=== PATIENT | male | born 1935 | race Caucasian/White ===

== ENCOUNTER 2017-08-07 18:28 | Inpatient (IN) | payer OTHER ==
[~2017-08-07] VITALS: Ht 175.3 cm; Wt 59.9 kg
[~2017-08-07 18:28] MED LIST: AMLODIPINE BESY10 MG PO; CARVEDILOL6.25 MG PO; FLOMAX0.4 MG PO; FLUOXETINE HCL40 MG PO; LISINOPRIL10 MG PO; LOVASTATIN10 MG PO; PROCHLORPERAZIN10 MG PO
[2017-08-07 19:46] LABS: BASOPHIL (%) 0.2 % (0-1); EOSINOPHIL (%) 0.1 % (0-5); HEMATOCRIT 44.2 % (38.0-50.0); HEMOGLOBIN 14.3 G/DL (12.5-16.6); IMMATURE GRANULOCYTE (%) 0.3 % (0.0-0.7); LYMPHOCYTE COUNT 0.7 K/uL (1.0-2.8); MCH 29.8 PG (29.0-34.0); MCHC 32.4 G/DL (30.0-36.0); MCV 92.1 FL (86-99); MONOCYTE (%) 8.8 % (3-12); MONOCYTE COUNT 1.1 K/uL (0-0.8); NEUTROPHIL (%) 84.6 % (45-76); NEUTROPHIL COUNT 10.3 K/uL (1.8-6.4); PLATELET COUNT 195 K/uL (156-360); RBC DIS.WIDTH-CV 17.2 % (11.8-14.6); RBC DIS.WIDTH-SD 58.4 % (39-53); WHITE BLOOD COUNT 12.2 K/uL (4.1-10.2)
[2017-08-07 19:59] LABS: CHLORIDE 107 mEq/L (99-109); POTASSIUM 3.4 mEq/L (3.7-5.4); SODIUM 142 mEq/L (136-147)
[2017-08-07 20:01] LABS: GLUCOSE 79 mg/dL (70-99)
[2017-08-07 20:02] LABS: TOTAL PROTEIN 7.7 g/dL (6.4-8.3)
[2017-08-07 20:03] LABS: TOTAL BILIRUBIN 0.4 mg/dL (0.0-1.0)
[2017-08-07 20:05] LABS: ALKALINE PHOSPHATASE 109 IU/L (3-129); CREATININE 0.8 mg/dL (0.6-1.3); GFR ESTIMATE (CALCULATED) > 59 mL/min/
[2017-08-07 20:06] LABS: UREA NITROGEN (BUN) 13 mg/dL (9-23)
[2017-08-07 20:07] LABS: AST (GOT) 9 IU/L (2-34); DIRECT BILIRUBIN 0.3 mg/dL (0.0-0.3)
[2017-08-07 20:08] LABS: ALT (GPT) 7 IU/L (3-49); LIPASE 10 U/L (1.0-51.0); TROP-I INTERPRETATION NEGATIVE; TROPONIN-I 0.01 ng/mL (0.0-0.30)
[2017-08-07] MEDS ORDERED: HYDROCODON-ACE1 EAC7 PO (21:50)
[2017-08-07] MEDS ORDERED: TAMSULOSIN HCL0.4 MG PO (21:51)
[2017-08-07] MEDS ORDERED: LISINOPRIL-HCT1 EAC3 PO (21:51)
[2017-08-07 23:07] LABS: APPEARANCE CLEAR ((CLEAR)); BILIRUBIN NEGATIVE; BLOOD NEGATIVE; COLOR YELLOW ((YELLOW)); GLUCOSE (STRIP) NEGATIVE; KETONES NEGATIVE; LEUKOCYTES NEGATIVE; NITRITE NEGATIVE; PROTEIN (STRIP) NEGATIVE; SPECIFIC GRAVITY 1.043 (1.000-1.030)
[2017-08-07 23:31] LABS: MAGNESIUM 1.9 mg/dL (1.3-2.7)
[2017-08-08 05:15] VITALS: BP 133/85
[2017-08-08 06:19] LABS: BASOPHIL (%) 0.1 % (0-1); EOSINOPHIL (%) 0 % (0-5); HEMATOCRIT 39.7 % (38.0-50.0); IMMATURE GRANULOCYTE (%) 0.5 % (0.0-0.7); LYMPHOCYTE (%) 2.2 % (15-42); LYMPHOCYTE COUNT 0.2 K/uL (1.0-2.8); MCH 29.3 PG (29.0-34.0); MCHC 30.7 G/DL (30.0-36.0); MCV 95.2 FL (86-99); MONOCYTE (%) 2.1 % (3-12); MONOCYTE COUNT 0.2 K/uL (0-0.8); NEUTROPHIL (%) 95.1 % (45-76); NEUTROPHIL COUNT 9.8 K/uL (1.8-6.4); PLATELET COUNT 141 K/uL (156-360); RBC DIS.WIDTH-CV 17.4 % (11.8-14.6); RBC DIS.WIDTH-SD 61.4 % (39-53); RED BLOOD COUNT 4.17 M/uL (4.00-5.50); WHITE BLOOD COUNT 10.3 K/uL (4.1-10.2)
[2017-08-08 06:31] LABS: HEMOGLOBIN 12.2 G/DL (12.5-16.6)
[2017-08-08 06:46] LABS: CHLORIDE 110 MEQ/L (99-109); CREATININE 0.7 MG/DL (0.6-1.3); GFR ESTIMATE (CALCULATED) > 59 mL/min/; SODIUM 140 MEQ/L (136-147); UREA NITROGEN (BUN) 12 mg/dL (9-23)
[2017-08-08 06:59] LABS: GLUCOSE 107 mg/dL (70-99); POTASSIUM 4.2 MEQ/L (3.7-5.4)
[2017-08-08 07:03] VITALS: BP 162/83
[2017-08-08 11:38] VITALS: BP 144/83
[2017-08-08 15:09] VITALS: BP 130/81
[2017-08-08 20:41] VITALS: BP 146/86
[2017-08-08 23:47] VITALS: BP 162/93
[2017-08-09 04:15] VITALS: BP 157/92
[2017-08-09 06:47] LABS: BASOPHIL (%) 0 % (0-1); EOSINOPHIL (%) 0 % (0-5); HEMATOCRIT 34.9 % (38.0-50.0); IMMATURE GRANULOCYTE (%) 0.8 % (0.0-0.7); LYMPHOCYTE (%) 4.6 % (15-42); LYMPHOCYTE COUNT 0.4 K/uL (1.0-2.8); MCH 29.4 PG (29.0-34.0); MCHC 31.5 G/DL (30.0-36.0); MCV 93.3 FL (86-99); MONOCYTE (%) 5.4 % (3-12); MONOCYTE COUNT 0.4 K/uL (0-0.8); NEUTROPHIL (%) 89.2 % (45-76); NEUTROPHIL COUNT 6.9 K/uL (1.8-6.4); PLATELET COUNT 128 K/uL (156-360); RBC DIS.WIDTH-CV 17.3 % (11.8-14.6); RBC DIS.WIDTH-SD 59.4 % (39-53); RED BLOOD COUNT 3.74 M/uL (4.00-5.50); WHITE BLOOD COUNT 7.8 K/uL (4.1-10.2)
[2017-08-09 07:19] LABS: ALBUMIN 2.3 G/DL (3.2-4.8); ALKALINE PHOSPHATASE 78 IU/L (3-129); ALT (GPT) 7 IU/L (3-49); AST (GOT) 7 IU/L (2-34); CHLORIDE 110 MEQ/L (99-109); CREATININE 0.6 MG/DL (0.6-1.3); GFR ESTIMATE (CALCULATED) > 59 mL/min/; GLUCOSE 104 mg/dL (70-99); PHOSPHORUS 2.7 mg/dL (2.5-4.9); POTASSIUM 3.8 MEQ/L (3.7-5.4); SODIUM 141 MEQ/L (136-147); TOTAL BILIRUBIN 0.3 MG/DL (0.0-1.0); TOTAL PROTEIN 5.7 G/DL (6.4-8.3); UREA NITROGEN (BUN) 19 mg/dL (9-23)
[2017-08-09 09:32] VITALS: BP 175/88
[2017-08-09 12:21] VITALS: BP 172/90
[2017-08-09 16:11] VITALS: BP 162/76
[2017-08-09 19:59] VITALS: BP 143/88
[2017-08-10 00:50] VITALS: BP 172/98
[2017-08-10 04:09] VITALS: BP 179/110
[2017-08-10 07:37] LABS: BASOPHIL (%) 0.1 % (0-1); EOSINOPHIL (%) 0 % (0-5); HEMATOCRIT 35.6 % (38.0-50.0); HEMOGLOBIN 11.5 G/DL (12.5-16.6); IMMATURE GRANULOCYTE (%) 0.9 % (0.0-0.7); LYMPHOCYTE (%) 7.8 % (15-42); LYMPHOCYTE COUNT 0.6 K/uL (1.0-2.8); MCH 29.9 PG (29.0-34.0); MCHC 32.3 G/DL (30.0-36.0); MCV 92.5 FL (86-99); MONOCYTE (%) 9.9 % (3-12); MONOCYTE COUNT 0.8 K/uL (0-0.8); NEUTROPHIL (%) 81.3 % (45-76); NEUTROPHIL COUNT 6.7 K/uL (1.8-6.4); PLATELET COUNT 145 K/uL (156-360); RBC DIS.WIDTH-CV 17.2 % (11.8-14.6); RBC DIS.WIDTH-SD 58.4 % (39-53); RED BLOOD COUNT 3.85 M/uL (4.00-5.50); WHITE BLOOD COUNT 8.2 K/uL (4.1-10.2)
[2017-08-10 07:45] VITALS: BP 144/80
[2017-08-10 08:00] LABS: CHLORIDE 108 MEQ/L (99-109); CREATININE 0.6 MG/DL (0.6-1.3); GFR ESTIMATE (CALCULATED) > 59 mL/min/; GLUCOSE 77 mg/dL (70-99); MAGNESIUM 1.9 mg/dl (1.3-2.7); POTASSIUM 3.5 MEQ/L (3.7-5.4); SODIUM 142 MEQ/L (136-147); UREA NITROGEN (BUN) 19 mg/dL (9-23)
[2017-08-10 11:26] VITALS: BP 152/86
[2017-08-10 17:01] VITALS: BP 186/88
[2017-08-11 00:26] VITALS: BP 195/116
[2017-08-11 03:38] VITALS: BP 199/93
[2017-08-11 06:43] LABS: BASOPHIL (%) 0.1 % (0-1); EOSINOPHIL (%) 0 % (0-5); HEMOGLOBIN 12.7 G/DL (12.5-16.6); IMMATURE GRANULOCYTE (%) 0.8 % (0.0-0.7); LYMPHOCYTE COUNT 0.6 K/uL (1.0-2.8); MCH 29.1 PG (29.0-34.0); MCHC 31.8 G/DL (30.0-36.0); MCV 91.7 FL (86-99); MONOCYTE (%) 12.3 % (3-12); MONOCYTE COUNT 1.1 K/uL (0-0.8); NEUTROPHIL (%) 79.8 % (45-76); NEUTROPHIL COUNT 6.9 K/uL (1.8-6.4); PLATELET COUNT 188 K/uL (156-360); RBC DIS.WIDTH-CV 17.1 % (11.8-14.6); RBC DIS.WIDTH-SD 57.9 % (39-53); RED BLOOD COUNT 4.36 M/uL (4.00-5.50); WHITE BLOOD COUNT 8.7 K/uL (4.1-10.2)
[2017-08-11 07:11] LABS: ALBUMIN 2.7 G/DL (3.2-4.8); ALKALINE PHOSPHATASE 92 IU/L (3-129); CHLORIDE 105 MEQ/L (99-109); CREATININE 0.7 MG/DL (0.6-1.3); GFR ESTIMATE (CALCULATED) > 59 mL/min/ (58.99-99999); GLUCOSE 81 mg/dL (70-99); POTASSIUM 3.6 MEQ/L (3.7-5.4); SODIUM 143 MEQ/L (136-147); UREA NITROGEN (BUN) 20 mg/dL (9-23)
[2017-08-11 07:13] LABS: ALT (GPT) 23 IU/L (3-49); AST (GOT) 19 IU/L (2-34); TOTAL BILIRUBIN 0.4 MG/DL (0.0-1.0)
[2017-08-11 07:39] VITALS: BP 200/110
[2017-08-11] MEDS ORDERED: AMLODIPINE BESY10 MG PO (09:24)
[2017-08-11] MEDS ORDERED: LISINOPRIL5 MG PO (09:25)
[2017-08-11] MEDS ORDERED: ADVAIR HFA120 INHALA IH (09:25)
[2017-08-11] MEDS ORDERED: VIGAMOX 0.60 DROP/3 BOTH EYES (09:25)
[2017-08-11] MEDS ORDERED: PREDNISONE20 MG PO (09:26)
[2017-08-11] MEDS ORDERED: AUGMENTIN875 MG PO (09:26)
[2017-08-11 11:02] VITALS: BP 154/92
[2017-08-11 19:43] LABS: C DIFF TOXIN NEGATIVE (NEGATIVE)
[2017-08-11 19:56] VITALS: BP 159/98
[2017-08-12] VITALS (7 sets, daily range): BP systolic 131–180; BP diastolic 66–99
[2017-08-12 06:38] LABS: BASOPHIL (%) 0.1 % (0-1); EOSINOPHIL (%) 0 % (0-5); HEMATOCRIT 41.1 % (38.0-50.0); HEMOGLOBIN 13.3 G/DL (12.5-16.6); IMMATURE GRANULOCYTE (%) 0.9 % (0.0-0.7); LYMPHOCYTE (%) 5.6 % (15-42); LYMPHOCYTE COUNT 0.5 K/uL (1.0-2.8); MCHC 32.4 G/DL (30.0-36.0); MCV 92.6 FL (86-99); MONOCYTE COUNT 1.2 K/uL (0-0.8); NEUTROPHIL (%) 79.4 % (45-76); NEUTROPHIL COUNT 6.7 K/uL (1.8-6.4); PLATELET COUNT 200 K/uL (156-360); RBC DIS.WIDTH-CV 17.5 % (11.8-14.6); RBC DIS.WIDTH-SD 60.2 % (39-53); RED BLOOD COUNT 4.44 M/uL (4.00-5.50); WHITE BLOOD COUNT 8.5 K/uL (4.1-10.2)
[2017-08-12 07:02] LABS: ALBUMIN 2.8 G/DL (3.2-4.8); CHLORIDE 109 MEQ/L (99-109); GFR ESTIMATE (CALCULATED) 48 mL/min/ (58.99-99999); GLUCOSE 86 mg/dL (70-99); PHOSPHORUS 3.1 mg/dL (2.5-4.9); POTASSIUM 3.6 MEQ/L (3.7-5.4); SODIUM 148 MEQ/L (136-147); UREA NITROGEN (BUN) 28 mg/dL (9-23)
[2017-08-12 07:03] LABS: CREATININE 1.5 MG/DL (0.6-1.3)
[2017-08-13 04:02] VITALS: BP 163/93
[2017-08-13 07:05] VITALS: BP 190/94
[2017-08-13 09:17] LABS: BASOPHIL (%) 0.1 % (0-1); EOSINOPHIL (%) 0.1 % (0-5); HEMATOCRIT 36.5 % (38.0-50.0); HEMOGLOBIN 11.6 G/DL (12.5-16.6); IMMATURE GRANULOCYTE (%) 0.8 % (0.0-0.7); LYMPHOCYTE (%) 8.3 % (15-42); LYMPHOCYTE COUNT 0.8 K/uL (1.0-2.8); MCH 29.7 PG (29.0-34.0); MCHC 31.8 G/DL (30.0-36.0); MCV 93.4 FL (86-99); MONOCYTE COUNT 1.1 K/uL (0-0.8); NEUTROPHIL (%) 79.7 % (45-76); NEUTROPHIL COUNT 7.9 K/uL (1.8-6.4); PLATELET COUNT 172 K/uL (156-360); RBC DIS.WIDTH-CV 17.8 % (11.8-14.6); RBC DIS.WIDTH-SD 60.1 % (39-53); RED BLOOD COUNT 3.91 M/uL (4.00-5.50); WHITE BLOOD COUNT 9.9 K/uL (4.1-10.2)
[2017-08-13 09:40] LABS: ALBUMIN 2.6 G/DL (3.2-4.8); CHLORIDE 103 MEQ/L (99-109); CREATININE 2.3 MG/DL (0.6-1.3); GFR ESTIMATE (CALCULATED) 29 mL/min/ (58.99-99999); GLUCOSE 79 mg/dL (70-99); PHOSPHORUS 3.9 mg/dL (2.5-4.9); POTASSIUM 4.2 MEQ/L (3.7-5.4); SODIUM 142 MEQ/L (136-147); UREA NITROGEN (BUN) 52 mg/dL (9-23)
[2017-08-13 11:01] VITALS: BP 143/86
[2017-08-13 15:05] VITALS: BP 122/76
[2017-08-13 19:41] VITALS: BP 164/95
[2017-08-13 23:31] VITALS: BP 164/83
[2017-08-14 03:30] VITALS: BP 164/88
[2017-08-14 06:26] LABS: BASOPHIL (%) 0.1 % (0-1); EOSINOPHIL (%) 0.2 % (0-5); HEMATOCRIT 33.2 % (38.0-50.0); HEMOGLOBIN 10.7 G/DL (12.5-16.6); LYMPHOCYTE (%) 7.4 % (15-42); LYMPHOCYTE COUNT 0.6 K/uL (1.0-2.8); MCH 29.9 PG (29.0-34.0); MCHC 32.2 G/DL (30.0-36.0); MCV 92.7 FL (86-99); MONOCYTE (%) 8.8 % (3-12); MONOCYTE COUNT 0.8 K/uL (0-0.8); NEUTROPHIL (%) 82.5 % (45-76); NEUTROPHIL COUNT 7.1 K/uL (1.8-6.4); PLATELET COUNT 167 K/uL (156-360); RBC DIS.WIDTH-CV 17.7 % (11.8-14.6); RBC DIS.WIDTH-SD 59.7 % (39-53); RED BLOOD COUNT 3.58 M/uL (4.00-5.50); WHITE BLOOD COUNT 8.6 K/uL (4.1-10.2)
[2017-08-14 06:57] LABS: ALBUMIN 2.2 G/DL (3.2-4.8); CHLORIDE 105 MEQ/L (99-109); GFR ESTIMATE (CALCULATED) 17 mL/min/ (58.99-99999); GLUCOSE 84 mg/dL (70-99); PHOSPHORUS 3.7 mg/dL (2.5-4.9); POTASSIUM 4.9 MEQ/L (3.7-5.4); SODIUM 142 MEQ/L (136-147); UREA NITROGEN (BUN) 74 mg/dL (9-23)
[2017-08-14 07:02] LABS: CREATININE 3.6 MG/DL (0.6-1.3)
[2017-08-14 07:25] VITALS: BP 187/94
[2017-08-14 11:40] VITALS: BP 155/78
[2017-08-14 13:16] LABS: UR CREATININE CONCENTRATION 22.6 MG/DL
[2017-08-14 16:20] VITALS: BP 172/96
[2017-08-14 19:27] VITALS: BP 156/91
[2017-08-15] VITALS (7 sets, daily range): BP systolic 114–206; BP diastolic 78–112
[2017-08-15 07:03] LABS: HEMATOCRIT 33.2 % (38.0-50.0); HEMOGLOBIN 10.8 G/DL (12.5-16.6); MCH 29.9 PG (29.0-34.0); MCHC 32.5 G/DL (30.0-36.0); PLATELET COUNT 169 K/uL (156-360); RBC DIS.WIDTH-CV 17.6 % (11.8-14.6); RBC DIS.WIDTH-SD 59.2 % (39-53); RED BLOOD COUNT 3.61 M/uL (4.00-5.50); WHITE BLOOD COUNT 7.6 K/uL (4.1-10.2)
[2017-08-15 07:34] LABS: ALBUMIN 2.3 G/DL (3.2-4.8); CHLORIDE 106 MEQ/L (99-109); GLUCOSE 78 mg/dL (70-99); PHOSPHORUS 2.7 mg/dL (2.5-4.9); SODIUM 140 MEQ/L (136-147)
[2017-08-15 07:35] LABS: CREATININE 1.2 MG/DL (0.6-1.3); GFR ESTIMATE (CALCULATED) > 59 mL/min/ (58.99-99999); POTASSIUM 3.7 MEQ/L (3.7-5.4); UREA NITROGEN (BUN) 36 mg/dL (9-23)
[2017-08-15 15:03] LABS: APPEARANCE CLOUDY ((CLEAR)); COLOR RED ((YELLOW))
[2017-08-15 15:04] LABS: BILIRUBIN NEGATIVE; BLOOD LARGE; GLUCOSE (STRIP) NEGATIVE; KETONES NEGATIVE; LEUKOCYTES SMALL; NITRITE NEGATIVE; PROTEIN (STRIP) 100; SPECIFIC GRAVITY 1.005 (1.000-1.030); UROBILINOGEN 0.2 MG/DL (0.2-1.0)
[2017-08-15 15:13] LABS: RED BLOOD CELLS TNTC /HPF (0-5); UCUL ADDED? YES
[2017-08-16] VITALS (7 sets, daily range): BP systolic 114–193; BP diastolic 69–95
[2017-08-16 06:53] LABS: HEMATOCRIT 34.5 % (38.0-50.0); MCH 29.7 PG (29.0-34.0); MCHC 31.9 G/DL (30.0-36.0); MCV 93.2 FL (86-99); PLATELET COUNT 161 K/uL (156-360); RBC DIS.WIDTH-SD 60.7 % (39-53)
[2017-08-16 07:17] LABS: ALBUMIN 2.4 G/DL (3.2-4.8); CHLORIDE 108 MEQ/L (99-109); CREATININE 1.4 MG/DL (0.6-1.3); GFR ESTIMATE (CALCULATED) 52 mL/min/ (58.99-99999); GLUCOSE 82 mg/dL (70-99); SODIUM 143 MEQ/L (136-147); UREA NITROGEN (BUN) 36 mg/dL (9-23)
[2017-08-17 06:21] LABS: HEMATOCRIT 33.5 % (38.0-50.0); HEMOGLOBIN 10.9 G/DL (12.5-16.6); MCH 30.4 PG (29.0-34.0); MCHC 32.5 G/DL (30.0-36.0); MCV 93.6 FL (86-99); PLATELET COUNT 168 K/uL (156-360); RBC DIS.WIDTH-CV 18.3 % (11.8-14.6); RBC DIS.WIDTH-SD 62.1 % (39-53); RED BLOOD COUNT 3.58 M/uL (4.00-5.50); WHITE BLOOD COUNT 5.8 K/uL (4.1-10.2)
[2017-08-17 06:54] LABS: ALBUMIN 2.4 G/DL (3.2-4.8); ALKALINE PHOSPHATASE 74 IU/L (3-129); ALT (GPT) 18 IU/L (3-49); AST (GOT) 12 IU/L (2-34); CHLORIDE 108 MEQ/L (99-109); GFR ESTIMATE (CALCULATED) > 59 mL/min/ (58.99-99999); GLUCOSE 77 mg/dL (70-99); SODIUM 140 MEQ/L (136-147); TOTAL BILIRUBIN 0.4 MG/DL (0.0-1.0); TOTAL PROTEIN 5.1 G/DL (6.4-8.3); UREA NITROGEN (BUN) 22 mg/dL (9-23)
[2017-08-17 06:58] LABS: CREATININE 0.7 MG/DL (0.6-1.3)
[2017-08-17 07:48] VITALS: BP 162/91
[2017-08-17 16:17] VITALS: BP 129/82
[2017-08-17 23:51] VITALS: BP 150/98
[2017-08-18 06:43] LABS: BASOPHIL (%) 0.2 % (0-1); EOSINOPHIL (%) 0.5 % (0-5); EOSINOPHIL COUNT 0.1 K/uL (0-0.3); HEMATOCRIT 35.8 % (38.0-50.0); HEMOGLOBIN 11.5 G/DL (12.5-16.6); LYMPHOCYTE COUNT 0.8 K/uL (1.0-2.8); MCH 29.9 PG (29.0-34.0); MCHC 32.1 G/DL (30.0-36.0); MONOCYTE COUNT 1.1 K/uL (0-0.8); NEUTROPHIL (%) 86.3 % (45-76); NEUTROPHIL COUNT 13.3 K/uL (1.8-6.4); PLATELET COUNT 193 K/uL (156-360); RBC DIS.WIDTH-CV 18.4 % (11.8-14.6); RBC DIS.WIDTH-SD 61.8 % (39-53); RED BLOOD COUNT 3.85 M/uL (4.00-5.50); WHITE BLOOD COUNT 15.4 K/uL (4.1-10.2)
[2017-08-18 07:01] LABS: ALBUMIN 2.5 G/DL (3.2-4.8); CHLORIDE 108 MEQ/L (99-109); POTASSIUM 3.8 MEQ/L (3.7-5.4); SODIUM 138 MEQ/L (136-147); TOTAL BILIRUBIN 0.4 MG/DL (0.0-1.0)
[2017-08-18 07:07] LABS: ALKALINE PHOSPHATASE 80 IU/L (3-129); ALT (GPT) 18 IU/L (3-49); AST (GOT) 14 IU/L (2-34); CREATININE 0.6 MG/DL (0.6-1.3); GFR ESTIMATE (CALCULATED) > 59 mL/min/ (58.99-99999); GLUCOSE 71 mg/dL (70-99); TOTAL PROTEIN 5.5 G/DL (6.4-8.3); UREA NITROGEN (BUN) 19 mg/dL (9-23)
[2017-08-18 07:44] VITALS: BP 152/102
[2017-08-18 15:45] LABS: BASOPHIL (%) 0.2 % (0-1); EOSINOPHIL (%) 1.1 % (0-5); EOSINOPHIL COUNT 0.1 K/uL (0-0.3); HEMOGLOBIN 10.5 G/DL (12.5-16.6); IMMATURE GRANULOCYTE (%) 1.1 % (0.0-0.7); LYMPHOCYTE (%) 8.1 % (15-42); LYMPHOCYTE COUNT 0.8 K/uL (1.0-2.8); MCH 29.7 PG (29.0-34.0); MCHC 31.8 G/DL (30.0-36.0); MCV 93.5 FL (86-99); MONOCYTE (%) 5.8 % (3-12); MONOCYTE COUNT 0.6 K/uL (0-0.8); NEUTROPHIL (%) 83.7 % (45-76); PLATELET COUNT 190 K/uL (156-360); RBC DIS.WIDTH-CV 18.5 % (11.8-14.6); RBC DIS.WIDTH-SD 62.6 % (39-53); RED BLOOD COUNT 3.53 M/uL (4.00-5.50); WHITE BLOOD COUNT 9.5 K/uL (4.1-10.2)
[2017-08-18 16:14] VITALS: BP 118/82
[2017-08-18 20:30] VITALS: BP 114/77
[2017-08-18 23:32] VITALS: BP 126/79
[2017-08-19 07:01] VITALS: BP 159/97
[2017-08-19 15:14] VITALS: BP 123/77
[2017-08-19 17:22] LABS: APPEARANCE CLEAR ((CLEAR)); BILIRUBIN NEGATIVE; BLOOD SMALL; COLOR YELLOW ((YELLOW)); GLUCOSE (STRIP) NEGATIVE; KETONES NEGATIVE; LEUKOCYTES NEGATIVE; NITRITE NEGATIVE; PROTEIN (STRIP) NEGATIVE; SPECIFIC GRAVITY 1.012 (1.000-1.030); UROBILINOGEN 0.2 MG/DL (0.2-1.0)
[2017-08-19 17:42] LABS: BACTERIA RARE /HPF; EPITHELIAL CELLS NONE SEEN /HPF; MUCUS TRACE /LPF; RED BLOOD CELLS 15-20 /HPF (0-5); WHITE BLOOD CELLS 0-5 /HPF (0-5)
[2017-08-19 23:40] VITALS: BP 152/89
[2017-08-20 06:24] LABS: BASOPHIL (%) 0.6 % (0-1); EOSINOPHIL (%) 2.3 % (0-5); EOSINOPHIL COUNT 0.2 K/uL (0-0.3); HEMATOCRIT 35.2 % (38.0-50.0); HEMOGLOBIN 11.1 G/DL (12.5-16.6); IMMATURE GRANULOCYTE (%) 1.1 % (0.0-0.7); LYMPHOCYTE COUNT 0.9 K/uL (1.0-2.8); MCH 29.6 PG (29.0-34.0); MCHC 31.5 G/DL (30.0-36.0); MCV 93.9 FL (86-99); MONOCYTE COUNT 0.9 K/uL (0-0.8); NEUTROPHIL COUNT 4.9 K/uL (1.8-6.4); PLATELET COUNT 193 K/uL (156-360); RBC DIS.WIDTH-CV 18.7 % (11.8-14.6); RBC DIS.WIDTH-SD 64.8 % (39-53); RED BLOOD COUNT 3.75 M/uL (4.00-5.50); WHITE BLOOD COUNT 7.1 K/uL (4.1-10.2)
[2017-08-20 06:47] LABS: ALBUMIN 2.5 G/DL (3.2-4.8); ALKALINE PHOSPHATASE 75 IU/L (3-129); ALT (GPT) 19 IU/L (3-49); AST (GOT) 14 IU/L (2-34); CHLORIDE 107 MEQ/L (99-109); CREATININE 0.6 MG/DL (0.6-1.3); GFR ESTIMATE (CALCULATED) > 59 mL/min/ (58.99-99999); GLUCOSE 80 mg/dL (70-99); SODIUM 141 MEQ/L (136-147); TOTAL BILIRUBIN 0.4 MG/DL (0.0-1.0); TOTAL PROTEIN 5.3 G/DL (6.4-8.3); UREA NITROGEN (BUN) 24 mg/dL (9-23)
[2017-08-20 07:50] VITALS: BP 147/99
[2017-08-20 15:49] VITALS: BP 138/82
[2017-08-21 00:11] VITALS: BP 140/78
[2017-08-21 07:02] LABS: BASOPHIL (%) 0.5 % (0-1); EOSINOPHIL (%) 2.3 % (0-5); EOSINOPHIL COUNT 0.2 K/uL (0-0.3); HEMOGLOBIN 11.2 G/DL (12.5-16.6); IMMATURE GRANULOCYTE (%) 1.2 % (0.0-0.7); LYMPHOCYTE (%) 12.8 % (15-42); MCH 29.6 PG (29.0-34.0); MCHC 31.1 G/DL (30.0-36.0); MCV 95.2 FL (86-99); MONOCYTE (%) 13.7 % (3-12); MONOCYTE COUNT 1.1 K/uL (0-0.8); NEUTROPHIL (%) 69.5 % (45-76); NEUTROPHIL COUNT 5.3 K/uL (1.8-6.4); PLATELET COUNT 187 K/uL (156-360); RBC DIS.WIDTH-CV 18.9 % (11.8-14.6); RBC DIS.WIDTH-SD 66.5 % (39-53); RED BLOOD COUNT 3.78 M/uL (4.00-5.50); WHITE BLOOD COUNT 7.7 K/uL (4.1-10.2)
[2017-08-21 07:22] VITALS: BP 157/96
[2017-08-21 07:43] LABS: ALBUMIN 2.5 G/DL (3.2-4.8); ALKALINE PHOSPHATASE 84 IU/L (3-129); ALT (GPT) 16 IU/L (3-49); AST (GOT) 12 IU/L (2-34); CHLORIDE 109 MEQ/L (99-109); CREATININE 0.6 MG/DL (0.6-1.3); GFR ESTIMATE (CALCULATED) > 59 mL/min/ (58.99-99999); GLUCOSE 72 mg/dL (70-99); POTASSIUM 4.4 MEQ/L (3.7-5.4); SODIUM 140 MEQ/L (136-147); TOTAL PROTEIN 5.5 G/DL (6.4-8.3); UREA NITROGEN (BUN) 26 mg/dL (9-23)
[2017-08-21 07:46] LABS: TOTAL BILIRUBIN 0.3 MG/DL (0.0-1.0)
[2017-08-21 16:00] VITALS: BP 114/82
[2017-08-21 23:08] VITALS: BP 134/91
[2017-08-22 07:27] VITALS: BP 152/93
[2017-08-22 15:22] VITALS: BP 103/70
[2017-08-23 00:16] VITALS: BP 150/95
[2017-08-23 06:33] LABS: BASOPHIL (%) 0.8 % (0-1); BASOPHIL COUNT 0.1 K/uL (0-0.1); EOSINOPHIL (%) 1.7 % (0-5); EOSINOPHIL COUNT 0.1 K/uL (0-0.3); HEMATOCRIT 35.9 % (38.0-50.0); HEMOGLOBIN 11.6 G/DL (12.5-16.6); IMMATURE GRANULOCYTE (%) 1.6 % (0.0-0.7); LYMPHOCYTE (%) 15.7 % (15-42); MCHC 32.3 G/DL (30.0-36.0); NEUTROPHIL (%) 64.2 % (45-76); NEUTROPHIL COUNT 4.1 K/uL (1.8-6.4); PLATELET COUNT 184 K/uL (156-360); RBC DIS.WIDTH-CV 18.8 % (11.8-14.6); RBC DIS.WIDTH-SD 67.9 % (39-53); RED BLOOD COUNT 3.74 M/uL (4.00-5.50); WHITE BLOOD COUNT 6.3 K/uL (4.1-10.2)
[2017-08-23 06:55] LABS: ALBUMIN 2.6 G/DL (3.2-4.8); CHLORIDE 105 MEQ/L (99-109); POTASSIUM 4.5 MEQ/L (3.7-5.4); SODIUM 137 MEQ/L (136-147); TOTAL BILIRUBIN 0.3 MG/DL (0.0-1.0)
[2017-08-23 07:01] LABS: ALKALINE PHOSPHATASE 90 IU/L (3-129); ALT (GPT) 15 IU/L (3-49); AST (GOT) 12 IU/L (2-34); CREATININE 0.5 MG/DL (0.6-1.3); GFR ESTIMATE (CALCULATED) > 59 mL/min/ (58.99-99999); GLUCOSE 74 mg/dL (70-99); TOTAL PROTEIN 5.8 G/DL (6.4-8.3); UREA NITROGEN (BUN) 22 mg/dL (9-23)
[2017-08-23 07:08] VITALS: BP 156/99
[2017-08-23] MEDS ORDERED: LOPERAMIDE2 MG PO (07:30)
[2017-08-23] MEDS ORDERED: CHOLESTYRAMINE P4 GM PO (07:30)
[2017-08-23] MEDS ORDERED: ALBUTEROL2.5 MG/0.5 AEROSOL (07:30)
[2017-08-23] MEDS ORDERED: CLONIDINE HCL0.1 MG PO (07:30)
[2017-08-23] MEDS ORDERED: SPIRIVA RESPIMAT4 GM IH (07:30)
[2017-08-23] MEDS ORDERED: CARVEDILOL3.125 MG PO (07:30)
[2017-08-23] MEDS ORDERED: TAMSULOSIN HCL0.4 MG PO (07:30)
[2017-08-23 15:10] VITALS: BP 104/69
[2017-08-24 00:23] VITALS: BP 118/81
[2017-08-24 07:41] VITALS: BP 137/102
[2017-08-24 07:54] VITALS: BP 142/97
[2017-08-24 16:19] VITALS: BP 108/75
[2017-08-24 23:46] VITALS: BP 142/76
[2017-08-25 06:50] VITALS: BP 154/83
[2017-08-25 15:16] VITALS: BP 122/71
[2017-08-26 00:11] VITALS: BP 123/80
[2017-08-26 06:59] VITALS: BP 147/87
[2017-08-26 15:10] VITALS: BP 109/66
[2017-08-26 23:38] VITALS: BP 103/71
[2017-08-27 06:15] LABS: HEMATOCRIT 37.1 % (38.0-50.0); HEMOGLOBIN 11.7 G/DL (12.5-16.6); MCH 30.3 PG (29.0-34.0); MCHC 31.5 G/DL (30.0-36.0); MCV 96.1 FL (86-99); PLATELET COUNT 146 K/uL (156-360); RBC DIS.WIDTH-CV 18.1 % (11.8-14.6); RBC DIS.WIDTH-SD 64.9 % (39-53); RED BLOOD COUNT 3.86 M/uL (4.00-5.50); WHITE BLOOD COUNT 5.3 K/uL (4.1-10.2)
[2017-08-27 06:53] LABS: ALBUMIN 2.8 G/DL (3.2-4.8); ALKALINE PHOSPHATASE 95 IU/L (3-129); ALT (GPT) 13 IU/L (3-49); AST (GOT) 11 IU/L (2-34); CHLORIDE 106 MEQ/L (99-109); CREATININE 0.6 MG/DL (0.6-1.3); GFR ESTIMATE (CALCULATED) > 59 mL/min/ (58.99-99999); GLUCOSE 80 mg/dL (70-99); SODIUM 139 MEQ/L (136-147); TOTAL BILIRUBIN 0.3 MG/DL (0.0-1.0); TOTAL PROTEIN 5.9 G/DL (6.4-8.3); UREA NITROGEN (BUN) 26 mg/dL (9-23)
[2017-08-27 07:48] VITALS: BP 138/98
[2017-08-27 16:10] VITALS: BP 107/70
[2017-08-27 23:46] VITALS: BP 112/74
[2017-08-28 06:57] VITALS: BP 149/83
[2017-08-28 15:10] VITALS: BP 106/58
[2017-08-28 20:15] VITALS: BP 118/70
[2017-08-29 00:15] VITALS: BP 135/84
[2017-08-29 07:51] VITALS: BP 144/81
[2017-08-29 16:00] VITALS: BP 96/69
[2017-08-30 00:42] VITALS: BP 128/89
[2017-08-30 07:41] VITALS: BP 131/84
[2017-08-30 16:17] VITALS: BP 94/67
== END 2017-08-30 17:28 | disposition home health service (06) | DRG 871 ==
LOC: EME 18:28 → EDOF 23:07 → 5SOUTH 23:07 → ENRESERV 23:10 → 5SOUTH 08-08 03:24
PROVIDERS: Hospitalist; Internal Medicine; Nurse Practitioner Adult Health; Pediatrics; Physician Assistant; Physician Assistant Medical
DX: A41.9 Sepsis, unspecified organism (principal); J18.0 Bronchopneumonia, unspecified organism; J44.0 Chronic obstructive pulmonary disease with (acute) lower respiratory infection; J44.1 Chronic obstructive pulmonary disease with (acute) exacerbation; I48.91 Unspecified atrial fibrillation; E44.0 Moderate protein-calorie malnutrition; N17.9 Acute kidney failure, unspecified; C79.51 Secondary malignant neoplasm of bone; C77.1 Secondary and unspecified malignant neoplasm of intrathoracic lymph nodes; R64 Cachexia; R31.0 Gross hematuria; S37.30XA Unspecified injury of urethra, initial encounter; Y84.6 Urinary catheterization as the cause of abnormal reaction of the patient, or of later complication, without mention of misadventure at the time of the procedure; D64.9 Anemia, unspecified; N31.2 Flaccid neuropathic bladder, not elsewhere classified; R09.02 Hypoxemia; E87.6 Hypokalemia; R19.7 Diarrhea, unspecified; E78.5 Hyperlipidemia, unspecified; I10 Essential (primary) hypertension; R29.6 Repeated falls; N40.1 Benign prostatic hyperplasia with lower urinary tract symptoms; R33.8 Other retention of urine; N13.6 Pyonephrosis; H10.9 Unspecified conjunctivitis; H91.90 Unspecified hearing loss, unspecified ear; Z66 Do not resuscitate; F17.210 Nicotine dependence, cigarettes, uncomplicated; Z59.0 Homelessness; Z75.1 Person awaiting admission to adequate facility elsewhere; Z23 Encounter for immunization; Z85.118 Personal history of other malignant neoplasm of bronchus and lung; Z68.1 Body mass index [BMI] 19.9 or less, adult; Z91.81 History of falling; Z91.19 Patient's noncompliance with other medical treatment and regimen; Z91.14 Patient's other noncompliance with medication regimen; Z92.21 Personal history of antineoplastic chemotherapy
CPT/HCPCS: 70450; 71010; 71020; 71260; 74177; 76770; 80048; 80053; 80069; 80076; 81003; 82306; 82436; 82570; 82607; 83605; 83690; 83735; 84100; 84134; 84156; 84300; 84425 90; 84484; 84630 90; 85025; 85025 91; 85027; 87040; 87070; 87086; 87177; 87205; 87329; 87449; 87493; 87506; 87801; 89190; 90686; 93005; 94010; 94640; 94640 76; 94760; 94799; 97530 GO; 97530 GP; 99202; 99281; 99285; J0295; J0456; J0692; J0696; J1644; J2930; J7030; J7050; J7120; J7512

== ENCOUNTER 2017-09-08 15:38 | Emergency (ER) | payer OTHER ==
[~2017-09-08] VITALS: Ht 175.3 cm; Wt 48.3 kg
[~2017-09-08 15:38] MED LIST changes: +ADVAIR HFA120 INHALA IH; +ALBUTEROL2.5 MG/0.5 AEROSOL; +AUGMENTIN875 MG PO; +CARVEDILOL3.125 MG PO; +CHOLESTYRAMINE P4 GM PO; +CLONIDINE HCL0.1 MG PO; +HYDROCODON-ACE1 EAC7 PO; +LISINOPRIL-HCT1 EAC3 PO; +LISINOPRIL5 MG PO; +LOPERAMIDE2 MG PO; +PREDNISONE20 MG PO; +SPIRIVA RESPIMAT4 GM IH; +TAMSULOSIN HCL0.4 MG PO; +VIGAMOX 0.60 DROP/3 BOTH EYES
[2017-09-08 18:10] VITALS: BP 145/98
== END 2017-09-08 18:52 | disposition home or self-care (01) ==
LOC: EME 15:38
DX: S30.0XXA Contusion of lower back and pelvis, initial encounter (principal); W18.11XA Fall from or off toilet without subsequent striking against object, initial encounter; Y92.002 Bathroom of unspecified non-institutional (private) residence as the place of occurrence of the external cause; R29.6 Repeated falls; I10 Essential (primary) hypertension; J44.9 Chronic obstructive pulmonary disease, unspecified; F17.200 Nicotine dependence, unspecified, uncomplicated
CPT/HCPCS: 72100

== ENCOUNTER 2017-09-10 22:53 | Inpatient (IN) | payer OTHER ==
[~2017-09-10] VITALS: Ht 175.3 cm; Wt 43.8 kg
[2017-09-10 23:36] LABS: APPEARANCE SL.HAZY ((CLEAR)); BILIRUBIN NEGATIVE; BLOOD MODERATE; COLOR YELLOW ((YELLOW)); GLUCOSE (STRIP) NEGATIVE; KETONES NEGATIVE; LEUKOCYTES SMALL; NITRITE NEGATIVE; PROTEIN (STRIP) NEGATIVE; SPECIFIC GRAVITY 1.014 (1.000-1.030)
[2017-09-11 00:09] LABS: MCH 31.4 PG (29.0-34.0); MCHC 33.3 G/DL (30.0-36.0); MCV 94.5 FL (86-99); RBC DIS.WIDTH-CV 14.7 % (11.8-14.6); RBC DIS.WIDTH-SD 51.8 % (39-53); RED BLOOD COUNT 4.55 M/uL (4.00-5.50); WHITE BLOOD COUNT 6.5 K/uL (4.1-10.2)
[2017-09-11 00:10] LABS: HEMOGLOBIN 14.3 G/DL (12.5-16.6); PLATELET COUNT 195 K/uL (156-360)
[2017-09-11 00:13] LABS: CHLORIDE 105 mEq/L (99-109); SODIUM 142 mEq/L (136-147)
[2017-09-11 00:13] LABS: BACTERIA 3+ /HPF; EPITHELIAL CELLS NONE SEEN /HPF; MUCUS 1+ /LPF; OTHER BUDDING YEAST; RED BLOOD CELLS NONE SEEN /HPF (0-5); UCUL ADDED? YES; WHITE BLOOD CELLS 20-30 /HPF (0-5)
[2017-09-11 00:14] LABS: GLUCOSE 86 mg/dL (70-99)
[2017-09-11 00:18] LABS: CREATININE 0.7 mg/dL (0.6-1.3); GFR ESTIMATE (CALCULATED) > 59 mL/min/ (58.99-99999)
[2017-09-11 00:19] LABS: UREA NITROGEN (BUN) 9 mg/dL (9-23)
[2017-09-11 00:21] LABS: POTASSIUM 2.3 mEq/L (3.7-5.4)
[2017-09-11 00:46] LABS: MAGNESIUM 1.6 mg/dL (1.3-2.7)
[2017-09-11 00:51] LABS: PHOSPHORUS 2.3 mg/dL (2.5-4.9)
[2017-09-11 04:00] VITALS: BP 102/54; BP 117/90
[2017-09-11 06:40] LABS: HEMATOCRIT 43.8 % (38.0-50.0); HEMOGLOBIN 14.3 G/DL (12.5-16.6); MCHC 32.6 G/DL (30.0-36.0); MCV 94.8 FL (86-99); PLATELET COUNT 201 K/uL (156-360); RBC DIS.WIDTH-CV 14.9 % (11.8-14.6); RBC DIS.WIDTH-SD 51.8 % (39-53); RED BLOOD COUNT 4.62 M/uL (4.00-5.50); WHITE BLOOD COUNT 9.2 K/uL (4.1-10.2)
[2017-09-11 07:08] LABS: CHLORIDE 107 MEQ/L (99-109); CREATININE 0.7 MG/DL (0.6-1.3); GFR ESTIMATE (CALCULATED) > 59 mL/min/ (58.99-99999); GLUCOSE 80 mg/dL (70-99); SODIUM 145 MEQ/L (136-147); UREA NITROGEN (BUN) 9 mg/dL (9-23)
[2017-09-11 07:46] VITALS: BP 155/97
[2017-09-11 12:46] VITALS: BP 148/62
[2017-09-11 15:29] VITALS: BP 124/80
[2017-09-11 20:55] VITALS: BP 130/78
[2017-09-12] VITALS (8 sets, daily range): BP systolic 119–166; BP diastolic 68–99
[2017-09-12 06:48] LABS: BASOPHIL (%) 1.2 % (0-1); BASOPHIL COUNT 0.1 K/uL (0-0.1); EOSINOPHIL (%) 1.5 % (0-5); EOSINOPHIL COUNT 0.1 K/uL (0-0.3); HEMATOCRIT 42.3 % (38.0-50.0); HEMOGLOBIN 13.6 G/DL (12.5-16.6); IMMATURE GRANULOCYTE (%) 0.8 % (0.0-0.7); LYMPHOCYTE COUNT 0.9 K/uL (1.0-2.8); MCH 30.7 PG (29.0-34.0); MCHC 32.2 G/DL (30.0-36.0); MCV 95.5 FL (86-99); MONOCYTE (%) 13.7 % (3-12); MONOCYTE COUNT 0.8 K/uL (0-0.8); NEUTROPHIL (%) 67.8 % (45-76); NEUTROPHIL COUNT 4.1 K/uL (1.8-6.4); PLATELET COUNT 187 K/uL (156-360); RBC DIS.WIDTH-CV 14.9 % (11.8-14.6); RED BLOOD COUNT 4.43 M/uL (4.00-5.50); WHITE BLOOD COUNT 6.1 K/uL (4.1-10.2)
[2017-09-12 06:49] LABS: CHLORIDE 105 MEQ/L (99-109); CREATININE 0.6 MG/DL (0.6-1.3); GFR ESTIMATE (CALCULATED) > 59 mL/min/ (58.99-99999); GLUCOSE 78 mg/dL (70-99); POTASSIUM 3.8 MEQ/L (3.7-5.4); SODIUM 142 MEQ/L (136-147); UREA NITROGEN (BUN) 10 mg/dL (9-23)
[2017-09-13 03:59] VITALS: BP 151/89
[2017-09-13 08:14] VITALS: BP 180/99
[2017-09-13 14:09] VITALS: BP 149/94
[2017-09-13] MEDS ORDERED: KEFLEX500 MG PO (14:38)
== END 2017-09-13 17:30 | disposition home health service (06) | DRG 699 ==
LOC: EME 22:53 → 4SOUTH 09-11 01:38 → EDOF 09-11 01:38 → ENRESERV 09-11 01:40 → 4SOUTH 09-11 03:16
PROVIDERS: Emergency Medicine; Hospitalist; Internal Medicine
DX: T83.511A Infection and inflammatory reaction due to indwelling urethral catheter, initial encounter (principal); N30.01 Acute cystitis with hematuria; J44.1 Chronic obstructive pulmonary disease with (acute) exacerbation; Z68.1 Body mass index [BMI] 19.9 or less, adult; E46 Unspecified protein-calorie malnutrition; F33.9 Major depressive disorder, recurrent, unspecified; E87.6 Hypokalemia; E78.5 Hyperlipidemia, unspecified; E83.39 Other disorders of phosphorus metabolism; F17.210 Nicotine dependence, cigarettes, uncomplicated; I10 Essential (primary) hypertension; R29.6 Repeated falls; J98.4 Other disorders of lung; R33.9 Retention of urine, unspecified; Y84.6 Urinary catheterization as the cause of abnormal reaction of the patient, or of later complication, without mention of misadventure at the time of the procedure; H91.90 Unspecified hearing loss, unspecified ear; Z59.0 Homelessness; Z79.51 Long term (current) use of inhaled steroids; Z85.118 Personal history of other malignant neoplasm of bronchus and lung; Z91.19 Patient's noncompliance with other medical treatment and regimen; Z80.1 Family history of malignant neoplasm of trachea, bronchus and lung; Z80.0 Family history of malignant neoplasm of digestive organs
CPT/HCPCS: 71046; 80048; 81003; 83735; 84100; 84132 91; 85025; 85027; 87040; 87086; 94640; 94640 76; 99202; 99281; 99285; A6214; J0692; J0696; J1644; J3480; J7040

== ENCOUNTER 2017-09-17 15:27 | Emergency (ER) | payer OTHER ==
[~2017-09-17] VITALS: Ht 175.3 cm; Wt 50.1 kg
[~2017-09-17 15:27] MED LIST changes: +KEFLEX500 MG PO
[2017-09-17 16:02] LABS: HEMOGLOBIN 14.7 G/DL (12.5-16.6); MCH 31.3 PG (29.0-34.0); MCHC 32.7 G/DL (30.0-36.0); MCV 95.9 FL (86-99); PLATELET COUNT 182 K/uL (156-360); RBC DIS.WIDTH-SD 53.1 % (39-53); RED BLOOD COUNT 4.69 M/uL (4.00-5.50); WHITE BLOOD COUNT 8.4 K/uL (4.1-10.2)
[2017-09-17 16:10] LABS: ALBUMIN 3.3 g/dL (3.2-4.8); CHLORIDE 106 mEq/L (99-109); POTASSIUM 3.1 mEq/L (3.7-5.4); SODIUM 140 mEq/L (136-147)
[2017-09-17 16:13] LABS: GLUCOSE 78 mg/dL (70-99)
[2017-09-17 16:15] LABS: TOTAL BILIRUBIN 0.2 mg/dL (0.0-1.0)
[2017-09-17 16:16] LABS: ALKALINE PHOSPHATASE 126 IU/L (3-129)
[2017-09-17 16:17] LABS: CREATININE 0.7 mg/dL (0.6-1.3); GFR ESTIMATE (CALCULATED) > 59 mL/min/ (58.99-99999)
[2017-09-17 16:18] LABS: AST (GOT) 14 IU/L (2-34); UREA NITROGEN (BUN) 13 mg/dL (9-23)
[2017-09-17 16:20] LABS: ALT (GPT) 14 IU/L (3-49)
[2017-09-17 16:27] LABS: APPEARANCE SL.HAZY ((CLEAR)); BILIRUBIN NEGATIVE; BLOOD MODERATE; COLOR YELLOW ((YELLOW)); GLUCOSE (STRIP) NEGATIVE; KETONES NEGATIVE; LEUKOCYTES MODERATE; NITRITE NEGATIVE; PROTEIN (STRIP) 30; SPECIFIC GRAVITY 1.018 (1.000-1.030); UROBILINOGEN 0.2 MG/DL (0.2-1.0)
[2017-09-17 16:38] LABS: BACTERIA RARE /HPF; CALCIUM OXALATE CRYSTALS 1+ /HPF; EPITHELIAL CELLS NONE SEEN /HPF; MUCUS TRACE /LPF; RED BLOOD CELLS 20-30 /HPF (0-5); UCUL ADDED? YES; WHITE BLOOD CELLS TNTC /HPF (0-5)
[2017-09-17 18:00] VITALS: BP 162/118
== END 2017-09-17 18:18 | disposition home or self-care (01) ==
LOC: EME 15:27
PROVIDERS: Physician Assistant Medical
DX: R33.9 Retention of urine, unspecified (principal); E87.6 Hypokalemia; Z46.6 Encounter for fitting and adjustment of urinary device; E78.5 Hyperlipidemia, unspecified; J44.9 Chronic obstructive pulmonary disease, unspecified; I10 Essential (primary) hypertension; Z85.118 Personal history of other malignant neoplasm of bronchus and lung; F17.200 Nicotine dependence, unspecified, uncomplicated; F32.9 Major depressive disorder, single episode, unspecified
CPT/HCPCS: 80053; 81003; 83735; 85027; 87077; 87493; 99281; 99285; J7040

== ENCOUNTER 2017-09-20 07:47 | Observation (INO) | payer OTHER ==
[~2017-09-20] VITALS: Ht 175.3 cm; Wt 39.9 kg
[2017-09-20 08:24] LABS: BASOPHIL (%) 0.3 % (0-1); EOSINOPHIL (%) 0 % (0-5); HEMATOCRIT 42.4 % (38.0-50.0); HEMOGLOBIN 13.9 G/DL (12.5-16.6); IMMATURE GRANULOCYTE (%) 1.3 % (0.0-0.7); LYMPHOCYTE (%) 2.2 % (15-42); LYMPHOCYTE COUNT 0.4 K/uL (1.0-2.8); MCH 31.4 PG (29.0-34.0); MCHC 32.8 G/DL (30.0-36.0); MCV 95.9 FL (86-99); MONOCYTE (%) 11.1 % (3-12); MONOCYTE COUNT 1.8 K/uL (0-0.8); NEUTROPHIL (%) 85.1 % (45-76); NEUTROPHIL COUNT 13.5 K/uL (1.8-6.4); PLATELET COUNT 131 K/uL (156-360); RBC DIS.WIDTH-CV 15.2 % (11.8-14.6); RBC DIS.WIDTH-SD 54.3 % (39-53); RED BLOOD COUNT 4.42 M/uL (4.00-5.50); WHITE BLOOD COUNT 15.9 K/uL (4.1-10.2)
[2017-09-20 08:36] LABS: CHLORIDE 106 mEq/L (99-109); POTASSIUM 3.6 mEq/L (3.7-5.4); SODIUM 140 mEq/L (136-147)
[2017-09-20 08:38] LABS: GLUCOSE 97 mg/dL (70-99)
[2017-09-20 08:42] LABS: GFR ESTIMATE (CALCULATED) 56 mL/min/ (58.99-99999)
[2017-09-20 08:46] LABS: CREATININE 1.3 mg/dL (0.6-1.3); UREA NITROGEN (BUN) 22 mg/dL (9-23)
[2017-09-20 10:30] LABS: CREATINE KINASE 313 IU/L (1-294)
[2017-09-20 10:32] LABS: PHOSPHORUS 3.3 mg/dL (2.5-4.9)
[2017-09-20 13:14] LABS: APPEARANCE CLOUDY ((CLEAR)); BILIRUBIN NEGATIVE; BLOOD MODERATE; COLOR YELLOW ((YELLOW)); GLUCOSE (STRIP) NEGATIVE; KETONES NEGATIVE; LEUKOCYTES LARGE; NITRITE NEGATIVE; PROTEIN (STRIP) 100; SPECIFIC GRAVITY 1.019 (1.000-1.030); UROBILINOGEN 0.2 MG/DL (0.2-1.0)
[2017-09-20 13:27] LABS: RED BLOOD CELLS 15-20 /HPF (0-5); WHITE BLOOD CELLS 40-50 /HPF (0-5)
[2017-09-20 13:28] LABS: BACTERIA 2+ /HPF; EPITHELIAL CELLS NONE SEEN /HPF; HYALINE CASTS 0-5 /LPF; MUCUS 3+ /LPF; UCUL ADDED? YES
[2017-09-20 16:08] VITALS: BP 191/90
[2017-09-20 19:48] VITALS: BP 102/79
[2017-09-20 23:22] VITALS: BP 134/83
[2017-09-21 04:30] VITALS: BP 120/77
[2017-09-21 07:30] VITALS: BP 137/86
[2017-09-21 09:34] LABS: HEMATOCRIT 35.4 % (38.0-50.0); MCH 31.4 PG (29.0-34.0); MCHC 33.3 G/DL (30.0-36.0); MCV 94.1 FL (86-99); PLATELET COUNT 103 K/uL (156-360); RBC DIS.WIDTH-SD 51.9 % (39-53); RED BLOOD COUNT 3.76 M/uL (4.00-5.50); WHITE BLOOD COUNT 12.3 K/uL (4.1-10.2)
[2017-09-21 09:42] LABS: HEMOGLOBIN 11.8 G/DL (12.5-16.6)
[2017-09-21 09:45] LABS: CHLORIDE 101 MEQ/L (99-109); GFR ESTIMATE (CALCULATED) > 59 mL/min/ (58.99-99999); GLUCOSE 75 mg/dL (70-99); SODIUM 133 MEQ/L (136-147); UREA NITROGEN (BUN) 21 mg/dL (9-23)
[2017-09-21 09:46] LABS: CREATININE 0.7 MG/DL (0.6-1.3)
[2017-09-21 17:05] VITALS: BP 173/97
[2017-09-21 23:27] VITALS: BP 158/92
[2017-09-22 08:22] VITALS: BP 159/86
[2017-09-22 08:58] LABS: HEMOGLOBIN 12.7 G/DL (12.5-16.6); MCH 31.4 PG (29.0-34.0); MCHC 33.4 G/DL (30.0-36.0); MCV 94.1 FL (86-99); PLATELET COUNT 117 K/uL (156-360); RBC DIS.WIDTH-CV 14.8 % (11.8-14.6); RBC DIS.WIDTH-SD 51.3 % (39-53); RED BLOOD COUNT 4.04 M/uL (4.00-5.50); WHITE BLOOD COUNT 7.6 K/uL (4.1-10.2)
[2017-09-22 09:17] LABS: CHLORIDE 100 MEQ/L (99-109); CREATININE 0.6 MG/DL (0.6-1.3); GFR ESTIMATE (CALCULATED) > 59 mL/min/ (58.99-99999); GLUCOSE 88 mg/dL (70-99); SODIUM 131 MEQ/L (136-147); UREA NITROGEN (BUN) 17 mg/dL (9-23)
[2017-09-22 09:18] LABS: POTASSIUM 3.9 MEQ/L (3.7-5.4)
[2017-09-22 15:28] VITALS: BP 158/82
[2017-09-22 23:20] VITALS: BP 117/82
[2017-09-23 07:32] VITALS: BP 131/86
[2017-09-23 16:30] VITALS: BP 151/83
[2017-09-23 23:30] VITALS: BP 133/89
[2017-09-24 07:36] VITALS: BP 161/90
[2017-09-24 23:42] VITALS: BP 156/91
[2017-09-25 07:07] LABS: CHLORIDE 107 MEQ/L (99-109); CREATININE 0.5 MG/DL (0.6-1.3); GFR ESTIMATE (CALCULATED) > 59 mL/min/ (58.99-99999); GLUCOSE 84 mg/dL (70-99); POTASSIUM 3.2 MEQ/L (3.7-5.4); UREA NITROGEN (BUN) 13 mg/dL (9-23)
[2017-09-25 07:10] LABS: SODIUM 142 MEQ/L (136-147)
[2017-09-25 08:02] VITALS: BP 147/103
[2017-09-25] MEDS ORDERED: DUONEB 2.5-0.5 M3 ML AEROSOL (14:35)
[2017-09-25] MEDS ORDERED: NICOTINE PATCH1 EAC2 TD (14:35)
[2017-09-25] MEDS ORDERED: CARVEDILOL6.25 MG PO (14:35)
[2017-09-25] MEDS ORDERED: TYLENOL REGULA325 MG PO (14:38)
[2017-09-25] MEDS ORDERED: ENDOCET 5-3251 EACH PO (14:38)
[2017-09-25 15:56] VITALS: BP 153/104
== END 2017-09-25 16:35 ==
LOC: EME 07:47 → EDOF 09:49 → 3EAST 09:49 → EDOF 09:49 → ENRESERV 09:59 → EDOF 10:00 → ENRESERV 11:51 → 3EAST 15:33
PROVIDERS: Emergency Medicine; Internal Medicine; Physician Assistant Medical
DX: S32.502A Unspecified fracture of left pubis, initial encounter for closed fracture (principal); D72.829 Elevated white blood cell count, unspecified; D69.6 Thrombocytopenia, unspecified; F17.210 Nicotine dependence, cigarettes, uncomplicated; E87.6 Hypokalemia; Z87.440 Personal history of urinary (tract) infections; J44.9 Chronic obstructive pulmonary disease, unspecified; I10 Essential (primary) hypertension; E78.5 Hyperlipidemia, unspecified; Z85.118 Personal history of other malignant neoplasm of bronchus and lung; R33.9 Retention of urine, unspecified; W06.XXXA Fall from bed, initial encounter; Z91.81 History of falling
CPT/HCPCS: 70450; 71045; 72170; 72192; 80048; 81003; 82550; 82948; 83735; 84100; 85025; 85027; 87086; 93005; 94640; 94640 76; 94760; 97530 GP; 99202; 99281; 99285; C1755; G0378; G8978 CL; G8979 GP CK; G8980 GP CM; G8987 GO CM; G8988 GO CK; G8989 GO CM; J0290; J1644; J7030; J7050

== ENCOUNTER 2017-12-20 11:07 | Emergency (ER) | payer OTHER ==
[~2017-12-20] VITALS: Ht 180.3 cm; Wt 54.3 kg
[~2017-12-20 11:07] MED LIST changes: +DUONEB 2.5-0.5 M3 ML AEROSOL; +ENDOCET 5-3251 EACH PO; +NICOTINE PATCH1 EAC2 TD; +TYLENOL REGULA325 MG PO
[2017-12-20 14:22] LABS: HEMATOCRIT 42.1 % (38.0-50.0); HEMOGLOBIN 13.9 G/DL (12.5-16.6); MCH 30.2 PG (29.0-34.0); MCV 91.5 FL (86-99); PLATELET COUNT 179 K/uL (156-360); RBC DIS.WIDTH-CV 14.8 % (11.8-14.6); RBC DIS.WIDTH-SD 49.8 % (39-53); WHITE BLOOD COUNT 10.1 K/uL (4.1-10.2)
[2017-12-20 14:33] LABS: ALBUMIN 3.4 g/dL (3.2-4.8)
[2017-12-20 14:34] LABS: CHLORIDE 107 mEq/L (99-109); POTASSIUM 3.2 mEq/L (3.7-5.4); SODIUM 142 mEq/L (136-147)
[2017-12-20 14:36] LABS: GLUCOSE 97 mg/dL (70-99); TOTAL PROTEIN 7.5 g/dL (6.4-8.3)
[2017-12-20 14:38] LABS: TOTAL BILIRUBIN 0.5 mg/dL (0.0-1.0)
[2017-12-20 14:39] LABS: ALKALINE PHOSPHATASE 136 IU/L (3-129)
[2017-12-20 14:40] LABS: CREATININE 0.8 mg/dL (0.6-1.3); GFR ESTIMATE (CALCULATED) > 59 mL/min/ (58.99-99999)
[2017-12-20 14:41] LABS: AST (GOT) 10 IU/L (2-34); UREA NITROGEN (BUN) 11 mg/dL (9-23)
[2017-12-20 14:43] LABS: ALT (GPT) 6 IU/L (3-49)
[2017-12-20 15:03] LABS: APPEARANCE CLOUDY ((CLEAR)); BILIRUBIN NEGATIVE; BLOOD SMALL; COLOR AMBER ((YELLOW)); GLUCOSE (STRIP) NEGATIVE; KETONES 5; LEUKOCYTES LARGE; NITRITE POSITIVE; PROTEIN (STRIP) 100
[2017-12-20 15:26] LABS: RED BLOOD CELLS 0-5 /HPF (0-5)
[2017-12-20 15:27] LABS: WHITE BLOOD CELLS TNTC /HPF (0-5)
[2017-12-20 15:28] LABS: BACTERIA 3+ /HPF; CALCIUM OXALATE CRYSTALS 2+ /HPF; EPITHELIAL CELLS RARE /HPF; MUCUS RARE /LPF; UCUL ADDED? YES
[2017-12-20] MEDS ORDERED: CIPRO500 MG PO (17:30)
[2017-12-20 18:33] VITALS: BP 148/99
== END 2017-12-20 18:35 | disposition home or self-care (01) ==
LOC: EME 11:07
PROVIDERS: Emergency Medicine
DX: N39.0 Urinary tract infection, site not specified (principal); S00.93XA Contusion of unspecified part of head, initial encounter; S60.512A Abrasion of left hand, initial encounter; T50.996A Underdosing of other drugs, medicaments and biological substances, initial encounter; Z91.14 Patient's other noncompliance with medication regimen; W01.0XXA Fall on same level from slipping, tripping and stumbling without subsequent striking against object, initial encounter; Y92.481 Parking lot as the place of occurrence of the external cause; Z46.6 Encounter for fitting and adjustment of urinary device; E78.5 Hyperlipidemia, unspecified; N17.9 Acute kidney failure, unspecified; I10 Essential (primary) hypertension; J44.9 Chronic obstructive pulmonary disease, unspecified; F32.9 Major depressive disorder, single episode, unspecified; Z85.118 Personal history of other malignant neoplasm of bronchus and lung; F17.200 Nicotine dependence, unspecified, uncomplicated
CPT/HCPCS: 70450; 80053; 81003; 85027; 87077; 87086; 87186; 99281; 99285; J0696

== ENCOUNTER 2018-03-26 14:33 | Emergency (ER) | payer OTHER ==
[~2018-03-26] VITALS: Ht 175.3 cm; Wt 48.5 kg
[~2018-03-26 14:33] MED LIST changes: +CIPRO500 MG PO
[2018-03-26 15:11] LABS: BASOPHIL (%) 0.6 % (0-1); BASOPHIL COUNT 0.1 K/uL (0-0.1); EOSINOPHIL (%) 0.2 % (0-5); HEMATOCRIT 40.2 % (38.0-50.0); HEMOGLOBIN 13.1 G/DL (12.5-16.6); IMMATURE GRANULOCYTE (%) 0.6 % (0.0-0.7); LYMPHOCYTE (%) 6.1 % (15-42); LYMPHOCYTE COUNT 0.6 K/uL (1.0-2.8); MCH 27.9 PG (29.0-34.0); MCHC 32.6 G/DL (30.0-36.0); MCV 85.7 FL (86-99); MONOCYTE (%) 7.7 % (3-12); MONOCYTE COUNT 0.8 K/uL (0-0.8); NEUTROPHIL (%) 84.8 % (45-76); NEUTROPHIL COUNT 8.7 K/uL (1.8-6.4); PLATELET COUNT 187 K/uL (156-360); RBC DIS.WIDTH-CV 16.2 % (11.8-14.6); RBC DIS.WIDTH-SD 50.5 % (39-53); RED BLOOD COUNT 4.69 M/uL (4.00-5.50); WHITE BLOOD COUNT 10.3 K/uL (4.1-10.2)
[2018-03-26 15:20] LABS: ALBUMIN 3.4 g/dL (3.2-4.8); CHLORIDE 105 mEq/L (99-109); POTASSIUM 3.2 mEq/L (3.7-5.4); SODIUM 141 mEq/L (136-147)
[2018-03-26 15:22] LABS: GLUCOSE 123 mg/dL (70-99); TOTAL PROTEIN 7.8 g/dL (6.4-8.3)
[2018-03-26 15:24] LABS: TOTAL BILIRUBIN 0.3 mg/dL (0.0-1.0)
[2018-03-26 15:26] LABS: ALKALINE PHOSPHATASE 133 IU/L (3-129); GFR ESTIMATE (CALCULATED) > 59 mL/min/ (58.99-99999)
[2018-03-26 15:27] LABS: UREA NITROGEN (BUN) 20 mg/dL (9-23)
[2018-03-26 15:28] LABS: AST (GOT) 9 IU/L (2-34)
[2018-03-26 15:29] LABS: ALT (GPT) 4 IU/L (3-49)
[2018-03-26 15:32] LABS: TROP-I INTERPRETATION NEGATIVE; TROPONIN-I < 0.01 ng/mL (0.0-0.30)
[2018-03-26 18:02] VITALS: BP 147/86
== END 2018-03-26 18:03 | disposition home or self-care (01) ==
LOC: EME 14:33
PROVIDERS: Emergency Medicine
DX: R53.1 Weakness (principal); C34.90 Malignant neoplasm of unspecified part of unspecified bronchus or lung; J44.9 Chronic obstructive pulmonary disease, unspecified; I10 Essential (primary) hypertension; E78.5 Hyperlipidemia, unspecified; F32.9 Major depressive disorder, single episode, unspecified; F17.200 Nicotine dependence, unspecified, uncomplicated
CPT/HCPCS: 70450; 71045; 80053; 84484; 85025; 93005; 99281; 99285

== ENCOUNTER 2018-03-29 17:32 | Inpatient (IN) | payer OTHER ==
[~2018-03-29] VITALS: Ht 175.3 cm; Wt 47.3 kg
[2018-03-29 18:57] LABS: BASOPHIL (%) 0.9 % (0-1); BASOPHIL COUNT 0.1 K/uL (0-0.1); EOSINOPHIL (%) 1.1 % (0-5); EOSINOPHIL COUNT 0.1 K/uL (0-0.3); HEMATOCRIT 41.5 % (38.0-50.0); HEMOGLOBIN 13.7 G/DL (12.5-16.6); IMMATURE GRANULOCYTE (%) 0.6 % (0.0-0.7); LYMPHOCYTE COUNT 1.1 K/uL (1.0-2.8); MCH 27.8 PG (29.0-34.0); MCV 84.3 FL (86-99); MONOCYTE COUNT 1.1 K/uL (0-0.8); NEUTROPHIL (%) 75.4 % (45-76); NEUTROPHIL COUNT 7.4 K/uL (1.8-6.4); PLATELET COUNT 213 K/uL (156-360); RBC DIS.WIDTH-SD 49.3 % (39-53); RED BLOOD COUNT 4.92 M/uL (4.00-5.50); WHITE BLOOD COUNT 9.9 K/uL (4.1-10.2)
[2018-03-29 19:03] LABS: INTER. NORMALIZED RATIO 1.2
[2018-03-29 19:06] LABS: ALBUMIN 3.4 g/dL (3.2-4.8); CHLORIDE 107 mEq/L (99-109); PTT 31.9 SEC (25-37); SODIUM 142 mEq/L (136-147)
[2018-03-29 19:09] LABS: GLUCOSE 74 mg/dL (70-99); TOTAL PROTEIN 7.6 g/dL (6.4-8.3)
[2018-03-29 19:11] LABS: POTASSIUM 3.9 mEq/L (3.7-5.4); TOTAL BILIRUBIN 0.4 mg/dL (0.0-1.0)
[2018-03-29 19:12] LABS: ALKALINE PHOSPHATASE 131 IU/L (3-129)
[2018-03-29 19:13] LABS: CREATININE 0.8 mg/dL (0.6-1.3); GFR ESTIMATE (CALCULATED) > 59 mL/min/ (58.99-99999)
[2018-03-29 19:14] LABS: AST (GOT) 8 IU/L (2-34); DIRECT BILIRUBIN 0.2 mg/dL (0.0-0.3); UREA NITROGEN (BUN) 14 mg/dL (9-23)
[2018-03-29 19:15] LABS: ALT (GPT) 4 IU/L (3-49)
[2018-03-29 19:18] LABS: TROP-I INTERPRETATION NEGATIVE; TROPONIN-I < 0.01 ng/mL (0.0-0.30)
[2018-03-29 20:47] LABS: APPEARANCE CLOUDY ((CLEAR)); BILIRUBIN NEGATIVE; BLOOD MODERATE; COLOR YELLOW ((YELLOW)); GLUCOSE (STRIP) NEGATIVE; KETONES NEGATIVE; LEUKOCYTES LARGE; NITRITE NEGATIVE; PROTEIN (STRIP) >=500; SPECIFIC GRAVITY 1.022 (1.000-1.030)
[2018-03-29 21:29] LABS: EPITHELIAL CELLS RARE /HPF; RED BLOOD CELLS 0-5 /HPF (0-5); WHITE BLOOD CELLS TNTC /HPF (0-5)
[2018-03-29 21:30] LABS: BACTERIA 1+ /HPF; MUCUS TRACE /LPF; UCUL ADDED? YES
[2018-03-30 01:09] VITALS: BP 147/97
[2018-03-30 06:37] LABS: BASOPHIL (%) 0.4 % (0-1); BASOPHIL COUNT 0.1 K/uL (0-0.1); EOSINOPHIL (%) 0.1 % (0-5); HEMATOCRIT 42.6 % (38.0-50.0); HEMOGLOBIN 13.8 G/DL (12.5-16.6); IMMATURE GRANULOCYTE (%) 0.9 % (0.0-0.7); LYMPHOCYTE (%) 4.6 % (15-42); LYMPHOCYTE COUNT 0.9 K/uL (1.0-2.8); MCH 27.1 PG (29.0-34.0); MCHC 32.4 G/DL (30.0-36.0); MCV 83.7 FL (86-99); MONOCYTE (%) 7.3 % (3-12); MONOCYTE COUNT 1.4 K/uL (0-0.8); NEUTROPHIL (%) 86.7 % (45-76); NEUTROPHIL COUNT 16.7 K/uL (1.8-6.4); PLATELET COUNT 220 K/uL (156-360); RBC DIS.WIDTH-CV 16.1 % (11.8-14.6); RBC DIS.WIDTH-SD 49.4 % (39-53); RED BLOOD COUNT 5.09 M/uL (4.00-5.50); WHITE BLOOD COUNT 19.2 K/uL (4.1-10.2)
[2018-03-30 06:58] LABS: CHLORIDE 103 MEQ/L (99-109); CREATININE 0.8 MG/DL (0.6-1.3); GFR ESTIMATE (CALCULATED) > 59 mL/min/ (58.99-99999); GLUCOSE 84 mg/dL (70-99); POTASSIUM 3.9 MEQ/L (3.7-5.4); SODIUM 139 MEQ/L (136-147); UREA NITROGEN (BUN) 13 mg/dL (9-23)
[2018-03-30 07:30] VITALS: BP 148/90
== END 2018-03-30 15:30 | disposition hospice, home (50) | DRG 71 ==
LOC: EME 17:32 → EDOF 22:43 → 5EAST 22:43 → ENRESERV 22:51 → 5EAST 03-30 00:28
PROVIDERS: Emergency Medicine; Internal Medicine
DX: G93.40 Encephalopathy, unspecified (principal); N39.0 Urinary tract infection, site not specified; Z68.1 Body mass index [BMI] 19.9 or less, adult; R64 Cachexia; E78.5 Hyperlipidemia, unspecified; S00.81XA Abrasion of other part of head, initial encounter; Z51.5 Encounter for palliative care; I10 Essential (primary) hypertension; R62.7 Adult failure to thrive; R26.2 Difficulty in walking, not elsewhere classified; F32.9 Major depressive disorder, single episode, unspecified; R29.6 Repeated falls; N40.0 Benign prostatic hyperplasia without lower urinary tract symptoms; F03.90 Unspecified dementia, unspecified severity, without behavioral disturbance, psychotic disturbance, mood disturbance, and anxiety; R53.1 Weakness; J44.9 Chronic obstructive pulmonary disease, unspecified; E86.0 Dehydration; Z91.14 Patient's other noncompliance with medication regimen; Z85.118 Personal history of other malignant neoplasm of bronchus and lung; Z87.440 Personal history of urinary (tract) infections; Z85.830 Personal history of malignant neoplasm of bone
CPT/HCPCS: 70450; 71045; 72125; 80048; 80076; 81003; 83605; 83880; 84484; 85025; 85610; 85730; 87040; 87077; 87086 GA; 87186; 94799; 99281; 99285; J0360; J0696; J1644; J7030